=== PATIENT | female | born 1940 | race Caucasian/White ===

== ENCOUNTER 2017-08-26 07:51 | Observation (INO) | payer MEDICARE, OTHER ==
[2017-08-26] MEDS ORDERED: NS 0.9% 1000 ML* 1,000 ML IV ONE (07:56)
--- NOTE | 2017-08-26 08:17 | RAD ---
Indication: Neurologic changes; stroke like symptoms. History of TIA. Comparison: August 01, 2013 Technique: Noncontrast CT vertex of skull through foramen magnum. Report: The cerebral sulci, ventricles, and basal cisterns are within normal limits for age. Mild prominence of the cerebellar fissures reflecting involutional change. Decreased density in the periventricular and subcortical white matter while non-specific is most likely due to chronic microangiopathy. Negative for dupont matter white matter obscuration, intra or extra-axial hemorrhage, or mass effect. Unremarkable partially visualized orbital contents. No fracture or suspicious calvarial or skull base lesion evident. Unremarkable scalp. IMPRESSION: 1. No CT evidence for intracranial hemorrhage or stigmata of ischemic stroke. 2. Mild involutional change and stigmata of chronic small vessel ischemic disease. Results discussed with Dr. Nielsen 08/26/2017 8:13 AM EDT
[2017-08-26 08:19] LABS: ABS Basophils 0.1 10^3/ul (0-0.2); ABS Eosinophils 0.1 10^3/ul (0-0.6); ABS Lymphocytes 1.7 10^3/ul (1.0-4.8); ABS Monocytes 0.4 10^3/ul (0-0.8); ABS Neutrophils 2.9 10^3/ul (1.5-7.7); ABS Nucleated RBC 0 10^3/ul; Eosinophil % 2.8 % (0-6); Hematocrit 44 % (35-47); Hemoglobin 14.7 g/dl (12.0-16.0); Lymphocyte % 33.4 % (25-47); Mean Corpuscular HGB Conc 34 g/dl (31-36); Mean Corpuscular Hemoglobin 31 pg (27-31); Mean Corpuscular Volume 93 fL (80-97); Mean Platelet Volume 8.7 um3 (7.4-10.4); Nucleated Red Blood Cells % 0.1; Platelet Count 188 10^3/ul (150-450); Red Blood Count 4.71 10^6/ul (4.0-5.4); Red Cell Distribution Width 13 % (10.5-15); White Blood Count 5.2 10^3/ul (3.5-10.8)
--- NOTE | 2017-08-26 08:27 | ED ---
Wojciech Marie Jennifer, scribed for Yogi Nielsen MD on 08/26/17 at 0808 . Neurological HPI - HPI Summary HPI Summary: The patient is a 77 year old female who complains of stroke-like symptoms since 2 hours ago. The patient states she woke up at 6:00 and couldnt turn on the lights. She states she couldnt think to do it but denies issues with motor functions. The patients states he didnt notice any symptoms and that nothing appears different. The patient has a history of mini stroke. - History of Current Complaint Stated Complaint: STROKE LIKE ACTIVITY Hx Obtained From: Patient, Family/Home Companion - Onset/Duration: Sudden Onset, Started hours ago - 2 hours, Still Present Timing: Constant Onset Severity: Mild Current Severity: Mild Pain Intensity: 0 Pain Scale Used: 0-10 Numeric Character: Other: - "can't think straight" Aggravating: Nothing Alleviating: Nothing Associated Signs and Symptoms: Positive: Confusion - Allergy/Home Medications Allergies/Adverse Reactions: Allergies Allergy/AdvReac Type Severity Reaction Status Date / Time No Known Allergies Allergy Verified 08/11/13 06:57 Home Medications: Home Medications Aspirin EC TAB* [Ecotrin EC Low Dose 81 MG*] 81 mg PO DAILY 08/26/17 [History Confirmed 08/26/17] Atorvastatin* [Lipitor*] 10 mg PO DAILY 08/26/17 [History Confirmed 08/26/17] Vitamin B Complex TAB* [B Complex-50*] 1 tab PO DAILY 08/26/17 [History Confirmed 08/26/17] PMH/Surg Hx/FS Hx/Imm Hx Endocrine/Hematology History: Denies: Hx Anticoagulant Therapy, Hx Diabetes, Hx Thyroid Disease, Hx Anemia , Hx Unexplained Bleeding Cardiovascular History: Reports: Other Cardiovascular Problems/Disorders - loop recorder - Denies: Hx Hypertension, Hx Pacemaker/ICD, Hx Peripheral Vascular Disease, Hx Rheumatic Fever, Hx Syncope, Hx Valvular Heart Disease Respiratory History: Reports: Other Respiratory Problems/Disorders - SINUS CONGESTION ALL THE TIME Denies: Hx Asthma, Hx Chronic Obstructive Pulmonary Disease (COPD) GI History: Reports: Hx Gastroesophageal Reflux Disease Denies: Hx Jaundice, Other GI Disorders History: Denies: Hx Renal Disease Musculoskeletal History: Reports: Hx Arthritis - knees, fingers, HIP, BACK Denies: Other Musculoskeletal History Sensory History: Reports: Hx Cataracts, Hx Vision Problem Denies: Hx Contacts or Glasses, Hx Eye Injury, Hx Eye Prosthesis, Hx Glaucoma , Hx Macular Degeneration, Hx Deafness, Hx Hearing Aid, Hx Hearing Problem, Other Sensory Impairments Opthamlomology History: Reports: Hx Cataracts, Hx Vision Problem Denies: Hx Contacts or Glasses, Hx Eye Injury, Hx Eye Prosthesis, Hx Glaucoma , Hx Macular Degeneration, Other Sensory Impairments Neurological History: Denies: Hx Dementia, Hx Developmental Delay, Hx Headaches, Hx Migraine, Hx Seizures, Hx Spinal Cord Injury, Hx Transient Ischemic Attacks (TIA), Other Neuro Impairments/Disorders Psychiatric History: Denies: Hx Panic Disorder, Hx Substance Abuse - Cancer History Cancer Type, Location and Year: tongue, surgical treatment 2003 Hx Chemotherapy: No Hx Radiation Therapy: No - Surgical History Surgery Procedure, Year, and Place: laser surgery tongue cancer in 2003, [facility]. hysterectomy 1979, [facility]. cardiac ablation 2000, [facility]. Loop recorder , Hx Anesthesia Reactions: No Infectious Disease History: No Infectious Disease History: Denies: Hx Hepatitis, Hx Human Immunodeficiency Virus (HIV), Traveled Outside the [place] in Last 30 Days - Family History Known Family History: Negative: Renal Disease - Social History Alcohol Use: None Substance Use Type: Reports: None Have You Smoked in the Last Year: No Review of Systems Negative: Fever Neurological: Negative - Motor function issues, Other - "couldn't think straight " All Other Systems Reviewed And Are Negative: Yes Physical Exam - Summary Physical Exam Summary: General: tearful, well-appearing, no pain distress Skin: warm, color reflects adequate perfusion, dry Head: normal Eyes: EOMI, MARELY ENT: normal Neck: supple, nontender Respiratory: CTA, breath sounds present Cardiovascular: RRR Abdomen: soft, nontender Bowel: present Musculoskeletal: normal, strength/ROM intact Extremities: arthritic hands Neurological: slight asymmetry of smile on left, normal gait, sensory/motor intact, A&O x3 Psychological: affect/mood appropriate Triage Information Reviewed: Yes Vital Signs On Initial Exam: Initial Vitals Temp Pulse Resp BP Pulse Ox 98.6 F 87 16 132/74 98 08/26/17 07:52 08/26/17 07:52 08/26/17 07:52 08/26/17 07:52 08/26/17 07:52 Vital Signs Reviewed: Yes Diagnostics - Vital Signs Vital Signs Temp Pulse Resp BP Pulse Ox 08/26/17 07:52 98.6 F 87 16 132/74 98 - Laboratory Lab Results: Lab Results 08/26/17 Range/Units 08:09 WBC 5.2 (3.5-10.8) 10^3/ul RBC 4.71 (4.0-5.4) 10^6/ul Hgb 14.7 (12.0-16.0) g/dl Hct 44 (35-47) % MCV 93 (80-97) fL MCH 31 (27-31) pg MCHC 34 (31-36) g/dl RDW 13 (10.5-15) % Plt Count 188 (150-450) 10^3/ul MPV 8.7 (7.4-10.4) um3 Neut % (Auto) 54.8 (38-83) % Lymph % (Auto) 33.4 (25-47) % [place] % (Auto) 7.7 H (0-7) % Eos % (Auto) 2.8 (0-6) % Baso % (Auto) 1.3 (0-2) % Absolute Neuts (auto) 2.9 (1.5-7.7) 10^3/ul Absolute Lymphs (auto) 1.7 (1.0-4.8) 10^3/ul Absolute Monos (auto) 0.4 (0-0.8) 10^3/ul Absolute Eos (auto) 0.1 (0-0.6) 10^3/ul Absolute Basos (auto) 0.1 (0-0.2) 10^3/ul Absolute Nucleated RBC 0 10^3/ul Nucleated RBC % 0.1 Result Diagrams: 08/26/17 08:09 Lab Statement: Any lab studies that have been ordered have been reviewed, and results considered in the medical decision making process. - CT Brain CT CT Interpretation: No Acute Changes - 1. No CT evidence for intracranial hemorrhage or stigmata of ischemic stroke. 2. Mild involutional change and stigmata of chronic small vessel ischemic disease. Dr. Nielsen has reviewed this report. CT Interpretation Completed By: Radiologist NIH Scale - NIH Scale Level of Consciousness: Alert/Keenly Responsive Ask Patient the Month and His/Her Age: Both Correct Ask Pt to Open/Close Eyes and Sales Technician/Release Non-Paretic Hand: Both Correctly Best Gaze (Only Horizontal Eye Movement): Normal Visual Field Testing: No Visual Loss Facial Paresis-Pt to Smile & Close Eyes or Grimace Symmetry: Normal/Symmetrical Motor Function - Right Arm: No Drift-Holds 10 Seconds Motor Function - Left Arm: No Drift-Holds 10 Seconds Motor Function - Right Leg: No Drift-Holds 10 Seconds Motor Function - Left Leg: No Drift-Holds 10 Seconds Limb Ataxia-Must be out of Proportion to Weakness Present: Absent Sensory (Use Pinprick to Test Arms/Legs/Trunk/Face): Normal Best Language (Describe Picture, Name Items): No Aphasia Dysarthria (Read Several Words): Normal Extinction and Inattention: No Abnormality Total Score: 0 Course/Dx - Course Course Of Treatment: NIHSS 0. CT neg. Signed out. - Diagnoses Provider Diagnoses: Confusion Discharge - Sign-Out/Discharge Documenting (check all that apply): Sign-Out Patient Signing out patient TO: Chris Marquez - Discharge Plan Condition: Stable Referrals: Arlene Wise MD [Primary Care Provider] - - Billing Disposition and Condition Condition: STABLE The documentation as recorded by the Wojciech pierce Jennifer accurately reflects the service I personally performed and the decisions made by , Yogi Nielsen MD.
[2017-08-26 08:31] LABS: INR 0.9 (0.77-1.02)
[2017-08-26 08:36] LABS: EGFR Non-African American 76.9 (>60)
--- NOTE | 2017-08-26 09:10 | RAD ---
INDICATION: Neurologic changes, code dupont. COMPARISON: There are no prior studies available for comparison. TECHNIQUE: A portable view of the chest was obtained. FINDINGS: Cardiac and mediastinal contours appear to be within normal limits. The lungs are hyperinflated. There is mild interstitial prominence toward the lung apices which is unchanged suggestive of scarring. The lungs are otherwise clear. No pleural effusion is seen. IMPRESSION: NO EVIDENCE FOR ACUTE DISEASE.
[2017-08-26 10:05] LABS: Urine Appearance Clear; Urine Blood Negative (Negative); Urine Color Straw; Urine Ketones Negative (Negative); Urine Protein Negative (Negative); Urine Specific Gravity 1.005 (1.010-1.030); Urine Urobilinogen Negative (Negative)
[2017-08-26] MEDS ORDERED: Iohexol 350* (CONTRAST) 500 ML MDV IV ONE (10:39)
--- NOTE | 2017-08-26 11:19 | RAD ---
HISTORY: Finding difficulty COMPARISONS: Head CT dated August 26, 2017 TECHNIQUE: The following sequences were obtained of the head: Sagittal T1-weighted images, axial T2-weighted images, axial FLAIR images, axial susceptibility weighted images, axial T1-weighted images. Additionally, axial diffusion-weighted images were obtained with calculated apparent diffusion coefficients. FINDINGS: HEMORRHAGE/INFARCT: There is a small focus of restricted diffusion within the left insula. Elsewhere, there is no hemorrhage or acute infarct. MASSES/SHIFT: There is no mass or shift. EXTRA-AXIAL SPACES/MENINGES: There are no extra-axial fluid collections. SULCI AND VENTRICLES: The sulci and ventricles are normal in size and position for the patient's stated age. CEREBRUM: There is a small focus of elevated T2/flair signal corresponding to the restricted diffusion within the left insula There are few scattered small foci of elevated T2/FLAIR signal within the periventricular and subcortical white matter. BRAINSTEM: There are no focal parenchymal abnormalities. CEREBELLUM: There are small chronic lacunar infarcts of the right inferior cerebellum The cerebellar tonsils are normal in size and position. SELLA: The sella is normal. PINEAL: The pineal region is clear. CP ANGLE/TEMPORAL BONES: The labyrinthine structures are grossly normal. VESSELS: Normal flow-voids are noted within the visualized vertebral vasculature. DIFFUSION ABNORMALITIES: As noted above, there is a small, 0.6 cm focus of resected diffusion within the left insula. PARANASAL SINUSES/MASTOIDS: The paranasal sinuses are clear. ORBITS: The orbits are unremarkable. BONES AND SOFT TISSUE: No bone or soft tissue abnormalities are noted. OTHER: None IMPRESSION: SMALL FOCUS OF RESTRICTED DIFFUSION WITHIN THE LEFT INSULA, CONSISTENT WITH SUBACUTE NONHEMORRHAGIC INFARCT.
--- NOTE | 2017-08-26 12:11 | RAD ---
HISTORY: TIA symptoms COMPARISONS: MRI dated August 26, 2017 TECHNIQUE: Multiple contiguous axial CT scans were obtained of the head and neck after the administration of nonionic intravenous contrast timed to the systemic arterial phase of contrast enhancement. Coronal and sagittal multiplanar reformations are submitted for review. Multiple 3-D maximum intensity projection reconstructions are also submitted for review. FINDINGS: CTA NECK: AORTIC ARCH: The aortic arch is not completely visualized within the [id number] the current examination. There is no proximal stenosis of the cephalic great vessels. RIGHT VERTEBRAL ARTERY: The right vertebral artery is patent along its course, without stenosis. LEFT VERTEBRAL ARTERY: The left vertebral artery is patent along its course, without stenosis. DOMINANCE: The left vertebral artery is dominant. RIGHT COMMON CAROTID ARTERY: The right common carotid artery is patent. The right carotid bifurcation occurs at C3-C4 RIGHT INTERNAL CAROTID ARTERY: There is mild atheromatous disease of the right carotid bifurcation, without right internal carotid artery stenosis by NASCET criteria. RIGHT EXTERNAL CAROTID ARTERY: The right external carotid artery is unremarkable. LEFT COMMON CAROTID ARTERY: The left common carotid artery is patent. The left carotid bifurcation occurs at C4 LEFT INTERNAL CAROTID ARTERY: There is mild atheromatous disease of the left carotid bifurcation, without left internal carotid artery stenosis by NASCET criteria. LEFT EXTERNAL CAROTID ARTERY: The left external carotid artery is unremarkable. VENOUS CIRCULATION: The venous system is unremarkable. SALIVARY GLANDS: The parotid glands, submandibular glands, sublingual glands are normal. NASAL CAVITY/NASOPHARYNX: The nasal cavity and nasopharynx are normal. ORAL CAVITY/OROPHARYNX: The oral cavity is obscured by streak artifact from dental amalgam. The visualized oral cavity and oropharynx are unremarkable. LARYNGEAL APPARATUS/HYPOPHARYNX: The laryngeal apparatus and hypopharynx are normal. UPPER AIRWAY/UPPER ESOPHAGUS: The visualized upper airway and esophagus are normal. LUNG APICES: The lung apices are clear. THYROID GLAND: There is a calcified nodule of the right thyroid. LYMPH NODES: There is no lymphadenopathy by size criteria. BONES AND SOFT TISSUES: No bone or soft tissue abnormalities are noted. CTA HEAD: INTRACRANIAL CIRCULATION: There is no aneurysm, vascular malformation, occlusion, or stenosis of the visualized intracranial circulation. The anterior communicating artery complex is clear. Bilateral posterior communicating arteries are identified. VENOUS CIRCULATION: The venous system is unremarkable. PERFUSION: There is no obvious parenchymal perfusion deficit. HEMORRHAGE/INFARCT: There is no hemorrhage or acute infarct. MASSES/SHIFT: There is no mass or shift. EXTRA-AXIAL SPACES: There are no extra-axial fluid collections. SULCI AND VENTRICLES: The sulci and ventricles are normal in size and position for the patient's stated age. CEREBRUM: There are no focal parenchymal abnormalities. BRAINSTEM: There are no focal parenchymal abnormalities. CEREBELLUM: There are no focal parenchymal abnormalities. PARANASAL SINUSES: The paranasal sinuses are clear. ORBITS: Senile calcifications are noted. BONES AND SOFT TISSUE: Mild degenerative changes are noted. OTHER: There is no abnormal enhancement. IMPRESSION: 1. NO INTERNAL CAROTID ARTERY STENOSIS BY NASCET CRITERIA. 2. NO ANEURYSM, VASCULAR MALFORMATION, OCCLUSION, OR STENOSIS OF THE VISUALIZED INTRACRANIAL CIRCULATION. CPT II Codes: 3100F
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
[2017-08-26] MEDS ORDERED: Acetaminophen TAB* 325 MG PO PRN (13:24)
[2017-08-26] MEDS ORDERED: Ondansetron INJ* 2 MG/ML VIAL IV PRN (13:24)
[2017-08-26] MEDS ORDERED: Heparin VIAL(*) 5000 UNITS/ML VIAL (FIVE THOUSAND) SUBCUT SCH (14:00)
--- NOTE | 2017-08-26 15:49 | HP ---
CC: Dr. Fontaine; Dr. Wise.* HISTORY AND PHYSICAL: DATE OF ADMISSION: 08/26/17 PRIMARY CARE PROVIDER: Dr. Wise. ATTENDING PHYSICIAN WHILE IN THE HOSPITAL: Harry Lu MD* (report dictated by Trenton Tejada NP). CONSULTING NEUROLOGIST: Dr. Fontaine. CHIEF COMPLAINT: 1. Altered mental status. 2. Difficulty with speech. HISTORY OF PRESENTING ILLNESS: Ms. Wasserman is a 77-year-old female patient. She has a history of CVA, thyroid nodule, tongue cancer, arthritis, hyperlipidemia, paroxysmal atrial fibrillation, status post ablation in 2001 with a history of left wrist fracture, also a history of a pelvic hematoma. She comes in to the emergency department today. She states that she got this morning to feed her cat. She noted immediately that when she went to get the treats out the bag, she just could not figure out how to do it, which was odd for her. She went down to her basement and she noted that she was having difficulty turning on the lights, which she knew how to do it, but just could not do it. Her woke up after around 7 o'clock and he noted that her speech was delayed. She said she knew what she wanted to say but jut could not get the words out. was immediately concerned and brought her into the hospital. There were no reports of facial drooping or weakness to one side. She denied having an unsteady gait. She denied having any changes in vision. There were no reports of chest pain. She has been reporting interestingly some palpitations and fluttering in her chest intermittently. She denies having any chest pain. No recent cough, fevers or chills. No recent abdominal pain or any diarrhea recently. The patient came into the ED, she was evaluated. There was concern for possible TIA and her symptoms resolved by the time she got here and we were asked to evaluate for admission. PAST MEDICAL HISTORY: Significant for: 1. History of CVA. 2. Thyroid nodule. 3. Tongue cancer. 4. Arthritis. 5. Hyperlipidemia. 6. Paroxysmal atrial fibrillation, status post ablation. 7. History of left wrist fracture. 8. History of pelvic hematoma. PAST SURGICAL HISTORY: 1. Patient has had ablation of her tongue cancer. 2. Ablation for AFib. 3. AFib. 4. Hysterectomy. 5. Left wrist ORIF. HOME MEDICATIONS: Include: 1. Aspirin 81 mg daily. 2. Vitamin B one tablet p.o. daily. 3. Multivitamin 1 tablet daily. 4. Atorvastatin 10 mg daily. ALLERGIES TO MEDICATIONS: Include no known drug allergies. FAMILY HISTORY: Her mother's history is unknown. Father, she thinks of complications from bowel obstruction, but she is unsure. SOCIAL HISTORY: She does not smoke, does not drink. Surrogate decision maker is her . REVIEW OF SYSTEMS: There is no documented fever. She denied having any significant weight change. There was no double vision. There is no ear discharge. She denies having any rhinorrhea. There is no sore throat. No thyroid enlargement. She denies having any chest pain. There is no orthopnea. There is no nocturnal dyspnea. There was no abdominal pain. There is no nausea, no vomiting. There was no dysuria. No frequency. No seizure. No loss of consciousness. No pruritus and no skin ulcerations. Review of 14 systems completed and otherwise negative. PHYSICAL EXAMINATION GENERAL: At this time, Ms. Wasserman is a 77-year-old female patient. She appears to be well nourished, well developed. She is sitting in the ED stretcher. VITAL SIGNS: Blood pressure 131/89, pulse 80, respirations 18, O2 sat 97%, temperature 98.6. HEENT: Head: Atraumatic. Normocephalic. Eyes: EOMs are intact. Sclerae anicteric, not pale. NECK: Supple. Throat: Oral mucosa appears to be moist. No oropharyngeal erythema. LUNGS: Clear to auscultation bilaterally. No wheezes, rales, or rhonchi. HEART: Sounds S1, S2. Regular rate and rhythm. No murmur rubs or gallops. ABDOMEN: Soft, flat, nontender. Bowel sounds are present. EXTREMITIES: Pulses were 2+ throughout. She is moving all 4 extremities with 5 /5 strength. NEUROLOGICAL: The patient is awake. She is alert. She is oriented x3. Her speech is clear. Wdokkw-sv-ejuc is intact bilaterally. Boxr-ry-bzsx intact bilaterally. Cranial nerves II through XII are intact. She had no gross focal deficits. SKIN: Grossly Intact. DIAGNOSTIC STUDIES/LAB DATA: Labs revealed a WBC of 5.2, RBC of 4.71, hemoglobin of 14.7, hematocrit of 44, and platelet count of 188. The INR was 0.90, PTT was 26.7. Sodium was 139, potassium 4.8, chloride 106, bicarb 29, BUN 18, creatinine 0.73, glucose 106, lactic 0.8, calcium 9.3. Total bili 0.8, AST 20, ALT 16, alk phos 64. Troponin 0. Albumin of 4.0. LDH was 53. She had a urine obtained which was negative. She had multiple imaging here in the ED starting out with the brain CT, which revealed impression no evidence for intracranial hemorrhage or stigmata of ischemic stroke, mild involutional change and stigmata of chronic small vessel ischemic changes. She had a chest x-ray obtained today as well, which revealed no evidence for acute disease. She had an EKG obtained today as well, which revealed normal sinus rhythm rate of 76, no ST elevations or T-wave inversions were noted, which we reviewed with the previous EKG, appears to be unchanged. She had a head CTA today as well. Impression: No intracranial carotid artery stenosis by NASCET criteria. No aneurysm, vascular malformation, occlusion or stenosis are visualized in the cranial circulation. Brain MRI showed today small focus of restricted diffusion within the left insula consistent with subacute nonhemorrhagic infarct. Old medical records reviewed. ASSESSMENT AND PLAN: Ms. Wasserman is a 77-year-old female patient coming into the emergency department today with complaints of difficulty with speech. On evaluation today, there was concern for transient ischemic attack, symptoms improved. She will be admitted under observation status for: 1. Transient ischemic attack. At this point, it does appear that she had a mild stroke. She may certainly had these symptoms at rest last night. MRI was positive. Dr. Fontaine is evaluating the patient. Plan for now is aspirin, statin and echo with bubble study. She will be placed on telemetry. If she has episodes of atrial fibrillation again, then we may need to consider anticoagulation; however, we need to get records on the patient's history of this hematoma that she had and often to get records from her rn heart, which I have requested, so hopefully we can get those today and we will continue with neuro checks, echo, tele, aspirin, statin therapy, check lipids fasting and an A1c. 2. History of cerebrovascular accident. Continue with secondary prevention. 3. Thyroid nodules. Follow with the PCP. 4. History of tongue cancer. Not active issue. Follow with PCP. 5. Hyperlipidemia. Continue statin therapy. Her LDH was stable. 6. Arthritis. Continue with supportive care. 7. Paroxysmal atrial fibrillation. We are going to place her on monitor. We will continue to follow. If this is confirmed, she most likely need to be on anticoagulation. 8. History of left wrist fracture with subsequent hematoma. Again, we are going to get records from her PCP, this was several years ago. 9. DVT prophylaxis. I did order heparin subcu. In the first 24 hours I am going to go ahead and put her on SCDs and then we can consider starting heparin in 24 hours after the acute infarct. 10. Code status. She is a full code. 11. Fluids, electrolytes, and nutrition: She can have a heart healthy diet. TIME SPENT: On this admission was 60 minutes, greater than half the time was spent [id number] with the patient obtaining my history and physical, other half of the time was spent going over the plan of care with the patient and implementing the plan of care. I discussed the plan of care with my attending, Dr. Lu, he is in agreement. TRENTON TEJADA, MARY [id number]/CPS #: [id number] SWATHI
--- NOTE | 2017-08-26 16:00 | ECHO ---
Amended Report Patient: KATARZYNA BERMAN [facility] Rec#: [id number] : 1940 Date: 08/26/2017 Age: 77y Height: 170.18 cm / 67.0 in Weight: 63.5 kg / 140.0 lbs Sex: F BSA: 1.74 Room#: [facility] Admit Date#: 08/26/2017 Type: Inpatient Referring: Trenton Tejada NP Reading: Daniel Lal MD Display Designer Outside: eGno Montes De Oca RDCS CC: Arlene Wise MD Transthoracic Echocardiogram Indication: TIA BP: 131/89 HR: 74 Rhythm: NSR Findings History: S/P cardiac ablation 2000, left MCA CVA 02/11, HLD, tongue cancer, PAF. Technical Comments: The study quality is fair. Completed at 1525. Left Ventricle: The left ventricular chamber size is normal. There is no left ventricular hypertrophy. Global left ventricular wall motion and contractility are within normal limits. There is normal left ventricular systolic function. The estimated ejection fraction is 55-60%. Normal left ventricular diastolic filling is observed. Left Atrium: The left atrial chamber size is normal. Right Ventricle: Moderator Band present. The right ventricular cavity size is normal. The right ventricular global systolic function is normal. Right Atrium: The right atrium is mildly dilated. There is evidence of an atrial septal aneurysm. The bubble study suggested right to left shunting with valsalva, although after several beats. Aortic Valve: The aortic valve is trileaflet. The aortic valve leaflets are mildly thickened. There is a trace of aortic regurgitation. There is no evidence of aortic stenosis. Mitral Valve: There is mitral annular calcification. The mitral valve leaflets are mildly thickened. There is mild mitral regurgitation. The mitral regurgitant jet is eccentric. There is no evidence of mitral stenosis. Tricuspid Valve: The tricuspid valve leaflets are normal. There is mild tricuspid regurgitation. The right ventricular systolic pressure is estimated at 22 mmHg. No pulmonary hypertension is noted. There is no tricuspid stenosis. Pulmonic Valve: The pulmonic valve appears normal. There is trace to mild pulmonic regurgitation. There is no pulmonic stenosis. Pericardium: There is no significant pericardial effusion. A pericardial fat pad is visualized. Aorta: There is mild dilatation of the ascending aorta. There is no dilatation of the aortic arch. The aortic root is normal in size. Pulmonary Artery: The main pulmonary artery appears normal. Venous: The inferior vena cava appears normal in size. There is a greater than 50% respiratory change in the inferior vena cava dimension. Contrast: Normal saline was used as contrast for the bubble study. Images 50 and 51. Intravenous contrast was used to help determine presence of intracardiac shunting. Conclusions There is normal left ventricular systolic function. The estimated ejection fraction is 55-60%. There is mild mitral regurgitation. There is mild tricuspid regurgitation. There is trace to mild pulmonic regurgitation. There is mild dilatation of the ascending aorta. There is evidence of an atrial septal aneurysm. The bubble study suggested right to left shunting with valsalva. No reports of prior studies are offered for comparison. Measurements Name Value Normal Range RVIDd (AP) 2D 3.6 cm (0.9 - 2.6) RVDdMajor (2D) 4.2 cm (2.2 - 4.4) RAd ISD 4CH 4.2 cm (3.4 - 4.9) RA (A4C)W 4.7 cm (2.9 - 4.6) IVSd (2D) 0.8 cm (0.6 - 1) LVPWd (2D) 0.9 cm (0.6 - 1) LVIDd (2D) 4.4 cm (3.6 - 5.4) LVIDs (2D) 3 cm - LV FS (2D) 32 % (25 - 45) Aortic Annulus 2 cm (1.4 - 2.6) Ao root diameter (2D) 3.1 cm (2.1 - 3.5) Ascending Ao 3.5 cm (2.1 - 3.4) Aortic arch 2.4 cm (1.8 - 3.4) LA dimension (AP) 2D 3.2 cm (2.3 - 3.8) LAd ISD 4CH 4.2 cm (2.9 - 5.3) LA ISD 4CH W 4.1 cm (2.5 - 4.5) Name Value Normal Range LA ESV SP 4CH (A/L) 50 ml - LA ESV SP 2CH (A/L) 31 ml - LA ESV BP (A/L) 41 ml - LA ESV BP (A/L) index 23 ml/m2 - LA ESV SP 4CH (MOD) 45 ml - LA ESV SP 2CH (MOD) 30 ml - Name Value Normal Range MV E-wave Vmax 0.65 m/sec - MV deceleration time 163.7 msec - MV A-wave Vmax 1.09 m/sec - MV E:A ratio 0.6 ratio - LV septal e' Vmax 0.06 m/sec - LV lateral e' Vmax 0.08 m/sec - LV E:e' septal ratio 10.83 ratio - LV E:e' lateral ratio 8.13 ratio - Name Value Normal Range AV Vmax 1 m/sec - AV VTI 25.78 cm - AV peak gradient 4.16 mmHg - AV mean gradient 2.34 mmHg - LVOT Vmax 0.87 m/sec - LVOT VTI 20.45 cm - LVOT peak gradient 3.07 mmHg - LVOT mean gradient 1.45 mmHg - ALEIDA Vmax 0.6 m/sec - Name Value Normal Range TR Vmax 2.2 m/sec - TR peak gradient 19 mmHg - RAP 3 mmHg - RVSP 22 mmHg - IVC diameter 1.7 cm - Name Value Normal Range PV Vmax 0.5 m/sec - PV peak gradient 1 mmHg -
--- NOTE | 2017-08-26 19:06 | ED ---
Wojciech Marie Jennifer, scribed for Chris Marquez MD on 08/26/17 at 0837 . Progress - Progress Note Progress Note: The patient is a sign-out from Dr. Nielsen pending CXR. EKG @ 08:17. NSR [address] No ectopy. CXR. Interpreted by a radiologist. IMPRESSION: NO EVIDENCE FOR ACUTE DISEASE. Dr. Marquez has reviewed this report. Brain MRI. Interpreted by a radiologist. IMPRESSION: SMALL FOCUS OF RESTRICTED DIFFUSION WITHIN THE LEFT INSULA, CONSISTENT WITH SUBACUTE NONHEMORRHAGIC INFARCT. Dr. Marquez has reviewed this report. Head CTA. Interpreted by a radiologist. IMPRESSION: 1. NO INTERNAL CAROTID ARTERY STENOSIS BY NASCET CRITERIA. 2. NO ANEURYSM, VASCULAR MALFORMATION, OCCLUSION, OR STENOSIS OF THE VISUALIZED INTRACRANIAL CIRCULATION. Dr. Marquez has reviewed this report. Course/Dx - Course Course Of Treatment: DR PEÑA, NEUROLOGY, SAW PATIENT IN ED. ADMIT HOSPITALIST. - Diagnoses Provider Diagnoses: TIA (transient ischemic attack) - Provider Notifications Discussed Care Of Patient With: Amisha Peña Time Discussed With Above Provider: 08:41 Instructed by Provider To: MD Will See In ED Discharge - Sign-Out/Discharge Documenting (check all that apply): Discharge/Admit/Transfer - Discharge Plan Condition: Stable Disposition: ADMITTED TO [facility] - Billing Disposition and Condition Condition: STABLE Disposition: [facility] [place] The documentation as recorded by the Wojciech pierce Jennifer accurately reflects the service I personally performed and the decisions made by , Chris Marquez MD.
[2017-08-27 06:11] LABS: ABS Basophils 0.1 10^3/ul (0-0.2); ABS Eosinophils 0.2 10^3/ul (0-0.6); ABS Lymphocytes 1.8 10^3/ul (1.0-4.8); ABS Monocytes 0.4 10^3/ul (0-0.8); ABS Neutrophils 2.8 10^3/ul (1.5-7.7); ABS Nucleated RBC 0 10^3/ul; Eosinophil % 3.2 % (0-6); Hematocrit 43 % (35-47); Hemoglobin 14.4 g/dl (12.0-16.0); Lymphocyte % 34.9 % (25-47); Mean Corpuscular HGB Conc 34 g/dl (31-36); Mean Corpuscular Hemoglobin 31 pg (27-31); Mean Corpuscular Volume 92 fL (80-97); Mean Platelet Volume 8.5 um3 (7.4-10.4); Nucleated Red Blood Cells % 0; Platelet Count 194 10^3/ul (150-450); Red Cell Distribution Width 13 % (10.5-15); White Blood Count 5.2 10^3/ul (3.5-10.8)
[2017-08-27 06:29] LABS: EGFR Non-African American 82.1 (>60)
[2017-08-27] MEDS ORDERED: Aspirin 81 mg CHEW TAB* 81 MG TAB.CHEW PO SCH (09:00)
[2017-08-27] MEDS ORDERED: Atorvastatin* 10 MG TAB PO SCH (09:00)
[2017-08-27] MEDS ORDERED: Aspirin EC TAB* 81 MG TAB.EC PO SCH (09:00)
--- NOTE | 2017-08-27 13:48 | PN ---
CC: Dr. Wise * FOLLOWUP NOTE: DATE OF FOLLOWUP: 08/27/17 HISTORY: No acute overnight events. I did speak with Trenton Tejada last night because Ms. Wasserman developed some increased difficulty with her speech, but I had visited her yesterday afternoon and she seemed to have some increased difficulty with her speech at that time as well. This morning her has noticed that she is having some word-finding problems and occasionally cannot get her thoughts out well. She also has some intermittent slurring of her speech. She denies any difficulties with swallowing or new extremity weakness. Rosalino sent to us Endocrinology notes yesterday, but we have yet to receive any Cardiology notes. I have a call into Dr. Wise's office as a result. CURRENT MEDICATIONS: 1. Acetaminophen 650 q.4 p.r.n. 2. Aspirin 81 mg daily. 3. Atorvastatin 10 mg daily. 4. Ondansetron 4 mg q.6 p.r.n. PHYSICAL EXAM: Vital Signs: Temperature 99.1, blood pressure 123/74, heart rate 77, oxygen saturation 96% on room air. On general examination, she is in no acute distress. Her heart is in a regular rate and rhythm with no murmurs, rubs or gallops. There are no carotid bruits. Lungs are clear to auscultation bilaterally. There is no lower extremity edema. Her skin is intact. On neurologic examination, she is fully awake, alert , and oriented. She does have some word-finding difficulties and had some trouble coming up with cactus on the stroke cards. She also has some mild slurring of her speech intermittently, but she is able to read all phrases on the stroke cards and was able to describe the cookie theft picture, though had some trouble with word finding in that regard. Pupils were equal, round, and reactive from 3 to 2 mm bilaterally. Versions are full without nystagmus. Irizarry are full to confrontation. Facial sensation is symmetric and full. On activation, she continues to have some mildly decreased activation on the right lower face. The palate elevates symmetrically and the tongue is midline. On motor examination, she has normal bulk and tone in the upper and lower extremities with no pronator drift. Strength is full. Sensation is intact to temperature in the upper and lower extremities. Yctses-ij-eaop is intact without ataxia. Reflexes are 2+. I did not ambulate her today. DATA: CBC was reviewed and is unchanged from yesterday. Her hemoglobin A1c is 5.8. Her cholesterol studies are overall unchanged from yesterday. Her MRI scan of the brain showed a small subacute infarction in the left insula. Her CT angiogram of the head and neck showed some mild atheromatous disease in the bilateral carotid arteries, but no significant stenosis and no evidence of occlusions in the intracranial circulation. Her transthoracic echocardiogram showed an atrial septal aneurysm as well as evidence of xncit-aj-ubay shunting. Otherwise, her EF was 55% to 60%. Telemetry has shown no evidence of atrial fibrillation. IMPRESSION: Loida Wasserman is a 77-year-old woman with a probable history of paroxysmal atrial fibrillation, currently on aspirin, who has experienced a small left insular stroke. She has some resultant word-finding difficulties as well as dysarthria, which is intermittent. I reassured them that at this point her infarct is small and she should recover well from this. It is possible that she may need some speech therapy as an outpatient, which could be ordered by her primary care physician if she does not recover well in the next week or so. I have a call into Dr. Wise's office since we were not able to get the correct records from [place], to inquire about her old loop recorder and the results there. If we can confirm that she has had paroxysmal atrial fibrillation, then I would recommend that she start Eliquis instead of aspirin, but I will also ask Case Management about the potential cost to her since obviously this is a brand name medication which is expensive. She is also going to have lower extremity Dopplers completed given the presence of the patent foramen ovale on echo and her recent long car ride. She should continue her statin and was encouraged to continue exercising when she gets home. They are eager to leave the hospital today, but I would like to make sure that we have all of the necessary information and discharge her on the appropriate medications, but hopefully we can get all of this accomplished later today and she could be discharged this afternoon. [id number]/[facility] #: [id number] SWATHI
--- NOTE | 2017-08-27 15:26 | RAD ---
HISTORY: Stroke TECHNIQUE: Multiple transverse and longitudinal ultrasound images were obtained of the veins of the bilateral lower extremities using grayscale, color Doppler, and spectral Doppler imaging with and without compression and with augmentation. FINDINGS: VEINS: The common femoral vein, deep femoral vein, femoral vein and popliteal vein are compressible throughout their course, with normal flow on color Doppler imaging and normal response to augmentation on spectral Doppler imaging. The left tibial veins are adequately patent and compressible. At the right posterior peroneal vein there is loss of compressibility. SOFT TISSUES: Grossly normal. No large popliteal fossa cyst was identified. IMPRESSION: 1. There is no sonographic evidence of femoropopliteal deep vein thrombosis. 2. Possible nonocclusive thrombus in the right posterior peroneal vein.
[2017-08-27 16:06] VITALS: BP 117/60
--- NOTE | 2017-08-28 01:45 | DS ---
CC: Dr. Wise * DISCHARGE SUMMARY: DATE OF ADMISSION: 08/26/17 DATE OF DISCHARGE: 08/27/17 PRINCIPAL DISCHARGE DIAGNOSES: 1. Left insular subacute cerebrovascular accident. 2. Iwelo-kgx-gbsb deep venous thrombosis. 3. Patent foramen ovale. SECONDARY DISCHARGE DIAGNOSES: 1. History of cerebrovascular accident. 2. Thyroid nodule. 3. Questionable paroxysmal atrial fibrillation. HOSPITAL COURSE BY PROBLEM: Subacute left insular CVA. Ms. Wasserman presented with altered mental status and difficulty with speech. Please see Trenton Tejada 's H and P for complete description of her HPI. An MRI revealed a left insular subacute infarct and Neurology was consulted. The finding on MRI explained her presenting symptoms and they believed that she has good potential for recovery given the small size of the CVA. They recommended possible speech therapy if she does not continue to improve over the next several weeks. Ms. Wasserman reportedly wore a loop recorder several years ago and she was told that she had atrial fibrillation; however, Dr. Fontaine discussed this with Rosalino and got reports that she did not have atrial fibrillation. An echocardiogram was obtained which showed a PFO. Due to the PFO and a recent long car ride, lower extremity Dopplers were obtained and showed concern for peroneal DVT, which is vmjlo-zra-vgyc DVT would not necessarily normally need to be anticoagulated. In this setting, I think that anticoagulation is prudent given her PFO and CVA. I discussed the risks and benefits of starting anticoagulation with Ms. Wasserman and started Eliquis for her after she agreed that the benefits outweigh the risks at this time, especially given the questionable history of atrial fibrillation and now with the new stroke. It would be reasonable to continue serial lower extremity Dopplers to trend the yjuom-huk-npic DVT. I also increased her atorvastatin dose from 10 mg daily to 40 mg daily and she was continued on aspirin. PHYSICAL EXAMINATION AT THE TIME OF DISCHARGE: Temperature 98.4, heart rate 85 , respiratory rate 16, pulse ox 95% on room air, blood pressure 117/60. General : This is an alert, well appearing female, in no distress. Pupils are equal, round, and reactive to light. She has no nystagmus. Face is symmetric. Mucosa is moist with no pharyngeal exudates or erythema. She has no JVP and no cervical lymphadenopathy. Chest: Regular rate and rhythm. No murmurs. PMI is nondisplaced. Lungs are clear bilaterally. Abdomen: Soft, nontender, nondistended. Extremities: No edema. No ulcers or rashes. Neurologic: She speaks in coherent sentences and answers all my questions appropriately. She follows simple and complex commands. She has occasional trouble word finding; however, able to locate the word after several seconds of thought. Her speech is somewhat garbled; however, she is able to communicate appropriate stream of thoughts and is cognitively intact. Please feel free to contact me at [phone] with any questions or concerns about Ms. Wasserman' admission or discharge. [id number]/[facility]PS #: [id number] [facility]
== END 2017-08-27 17:20 | disposition home or self-care (01) ==
LOC: ED 07:51 → UNDOADMOB 09:48 → MEDTELE 09:48
PROVIDERS: ADMIT Internal Medicine; ATTEND Internal Medicine
DX: I63.9 Cerebral infarction, unspecified (principal); E04.1 Nontoxic single thyroid nodule; Z86.73 Personal history of transient ischemic attack (TIA), and cerebral infarction without residual deficits; I48.0 Paroxysmal atrial fibrillation; E78.5 Hyperlipidemia, unspecified; Z85.810 Personal history of malignant neoplasm of tongue; Z79.899 Other long term (current) drug therapy; Z79.01 Long term (current) use of anticoagulants
CPT/HCPCS: 36415; 70450; 70496; 70498; 70551; 71045; 80048; 80053; 80061; 81003; 83036; 83605; 84484; 85025; 85610; 85730; 86850; 86900; 86901; 93005; 93306; 93970; 96360; 99285; A9270-GY; G0378; Q9967

== ENCOUNTER → 2018-09-27 00:27 | Emergency (ER) | payer MEDICARE ==
[~2018-09-27 00:27] MED LIST: traMADol TAB* 50 MG PO ONE
[2018-09-27 01:58] VITALS: BP 157/83
--- NOTE | 2018-09-27 02:02 | ED ---
Adult Trauma - HPI Summary HPI Summary: This patient is an 78 year old female presenting to [facility] with a chief complaint of injuries after a fall. Pt states she was walking back from the bathroom when she accidentally fell. She states she missed the bed as she was attempting to get in. She says she hit her head but denies LOC. She states she is on Eliquis. - History of Current Complaint Chief Complaint: EDHeadInjury Stated Complaint: "FELL OUT OF BED AND LAC ON FACE" PER Time Seen by Provider: 09/27/18 01:48 Hx Obtained From: Patient ?: No Pain Intensity: 5 - Additional Pertinent History Primary Care Physician: LIU - Allergy/Home Medications Allergies/Adverse Reactions: Allergies Allergy/AdvReac Type Severity Reaction Status Date / Time No Known Allergies Allergy Verified 09/27/18 00:37 PMH/Surg Hx/FS Hx/Imm Hx Endocrine/Hematology History: Denies: Hx Anticoagulant Therapy, Hx Diabetes, Hx Thyroid Disease, Hx Anemia , Hx Unexplained Bleeding Cardiovascular History: Reports: Other Cardiovascular Problems/Disorders - a fib with ablation Denies: Hx Hypertension, Hx Pacemaker/ICD, Hx Peripheral Vascular Disease, Hx Rheumatic Fever, Hx Syncope, Hx Valvular Heart Disease Respiratory History: Reports: Other Respiratory Problems/Disorders - SINUS CONGESTION ALL THE TIME Denies: Hx Asthma, Hx Chronic Obstructive Pulmonary Disease (COPD) GI History: Reports: Hx Gastroesophageal Reflux Disease, Other GI Disorders - esophagitis Denies: Hx Jaundice History: Denies: Hx Renal Disease Musculoskeletal History: Reports: Hx Arthritis Denies: Other Musculoskeletal History Sensory History: Reports: Hx Cataracts, Hx Vision Problem Denies: Hx Contacts or Glasses, Hx Eye Injury, Hx Eye Prosthesis, Hx Glaucoma , Hx Macular Degeneration, Hx Deafness, Hx Hearing Aid, Hx Hearing Problem, Other Sensory Impairments Opthamlomology History: Reports: Hx Cataracts, Hx Vision Problem Denies: Hx Contacts or Glasses, Hx Eye Injury, Hx Eye Prosthesis, Hx Glaucoma , Hx Macular Degeneration, Other Sensory Impairments Neurological History: Reports: Hx Transient Ischemic Attacks (TIA) Denies: Hx Dementia, Hx Developmental Delay, Hx Headaches, Hx Migraine, Hx Seizures, Hx Spinal Cord Injury, Other Neuro Impairments/Disorders Psychiatric History: Denies: Hx Panic Disorder, Hx Substance Abuse - Cancer History Cancer Type, Location and Year: tongue, surgical treatment 2003 Hx Chemotherapy: No Hx Radiation Therapy: No - Surgical History Surgery Procedure, Year, and Place: laser surgery tongue cancer in 2003, [facility]. hysterectomy 1979, [facility]. cardiac ablation 2000, [facility]. Loop recorder , REMOVED Hx Anesthesia Reactions: No Infectious Disease History: No Infectious Disease History: Denies: Hx Hepatitis, Hx Human Immunodeficiency Virus (HIV), Traveled Outside the [place] in Last 30 Days - Family History Known Family History: Negative: Renal Disease - Social History Alcohol Use: None Substance Use Type: Reports: None Smoking Status (MU): Former Smoker Have You Smoked in the Last Year: No Review of Systems Negative: Fever Negative: Syncope All Other Systems Reviewed And Are Negative: Yes Physical Exam - Summary Physical Exam Summary: VITAL SIGNS: Reviewed. GENERAL: Patient is a well-developed and nourished FEMALE who is lying comfortable in the stretcher. Patient is not in any acute respiratory distress. HEAD AND FACE: No signs of trauma. No ecchymosis, hematomas or skull depressions. No sinus tenderness. EYES: PERRLA, EOMI x 2, No injected conjunctiva, no nystagmus. EARS: Hearing grossly intact. Ear canals and tympanic membranes are within normal limits. MOUTH: Oropharynx within normal limits. NECK: Supple, trachea is midline, no adenopathy, no JVD, no carotid bruit, no c- spine tenderness, neck with full ROM CHEST: Symmetric, no tenderness at palpation LUNGS: Clear to auscultation bilaterally. No wheezing or crackles. CVS: Regular rate and rhythm, S1 and S2 present, no murmurs or gallops appreciated. ABDOMEN: Soft, non-tender. No signs of distention. No rebound no guarding, and no masses palpated. Bowel sounds are normal. EXTREMITIES: FROM in all major joints, no edema, no cyanosis or clubbing. NEURO: Alert and oriented x 3. No acute neurological deficits. Speech is normal and follows commands. SKIN: Dry and warm. Swelling over right occipital area. No focal deficits. Triage Information Reviewed: Yes Vital Signs On Initial Exam: Initial Vitals Temp Pulse Resp BP Pulse Ox 98.6 F 75 16 159/83 100 09/27/18 00:35 09/27/18 00:35 09/27/18 00:35 09/27/18 00:35 09/27/18 00:35 Vital Signs Reviewed: Yes Diagnostics - Vital Signs Vital Signs Temp Pulse Resp BP Pulse Ox 09/27/18 00:35 98.6 F 75 16 159/83 100 - Laboratory Lab Statement: Any lab studies that have been ordered have been reviewed, and results considered in the medical decision making process. - CT Brain CT Interpretation Completed By: Radiologist Summary of CT Findings: 1. 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 2. Otherwise negative noncontrast head CT. ED Provider has reviewed this report. Adult Trauma Course/Dx - Course Course Of Treatment: This patient is an 78 year old female presenting to [facility] with a chief complaint of injuries after a fall. Brain CT and physical exam were unremarkable for neurological problems. Physical exam revealed a contusion on right occipital area. A plan for discharge was discussed with the patient and she was agreeable with this plan. - Diagnoses Provider Diagnoses: Scalp contusion, Head injury Discharge - Sign-Out/Discharge Documenting (check all that apply): Patient Departure - Discharge Patient Received Moderate/Deep Sedation with Procedure: No - Discharge Plan Condition: Stable Disposition: HOME Patient Education Materials: Head Injury (ED) Referrals: Arlene Wise MD [Primary Care Provider] - Additional Instructions: Return to ED with any new or worsening symptoms. - Attestation Statements Document Initiated by Scribe: Yes Documenting Scribe: Jovani Hernandez Provider For Whom Scribe is Documenting (Include Credential): Gee Whitfield MD Scribe Attestation: Jovani Marie, scribed for Gee Whitfield MD on 09/27/18 at 0200. Status of Scribe Document: Ready
== END | disposition home or self-care (01) ==
LOC: ED 00:27
DX: S00.03XA Contusion of scalp, initial encounter (principal); S09.90XA Unspecified injury of head, initial encounter; W18.30XA Fall on same level, unspecified, initial encounter; Y92.008 Other place in unspecified non-institutional (private) residence as the place of occurrence of the external cause; Z79.01 Long term (current) use of anticoagulants; Z87.891 Personal history of nicotine dependence
CPT/HCPCS: 70450; 99282; A9270-GY